=== PATIENT | male | born 1955 | race Caucasian/White ===

== ENCOUNTER 2022-10-15 05:35 | Observation (INO) | payer MEDICARE ==
[2022-10-08 12:57] VITALS: BMI 34.0
[~2022-10-15 05:35] MED LIST: ACETAMINOPHEN TAB 500 MG TAB PO PRN; GABAPENTIN 300 MG CAP PO PRN; MELOXICAM 7.5 MG TAB PO PRN; TRANEXAMIC ACID IN NACL,ISO-OS 1,000 MG in SALINE 1 100ML.BAG IVPB PRN
[2022-10-15] MEDS ORDERED: DEXAMETHASONE SOD PHOSPHATE 4 MG/ML 1 ML VIAL IV ONE (05:46)
[2022-10-15] MEDS ORDERED: HYDROmorphone 0.5 MG/0.5 ML SYRINGE IVP PRN ×4 (05:46→07:12)
[2022-10-15] MEDS ORDERED: ONDANSETRON 4 MG/2 ML VIAL IVP ONE (05:46)
[2022-10-15] MEDS ORDERED: LIDOCAINE 1% (10MG/ML) FOR IV START INTRADERMA PRN (05:46)
[2022-10-15] MEDS: LACTATED RINGERS 1,000 ML IV SCH (05:55)
[2022-10-15] MEDS ORDERED: fentaNYL (PF) 50 MCG/1 ML VIAL IVP ONE (06:47)
[2022-10-15] MEDS ORDERED: MIDAZOLAM 2 MG/2 ML VIAL IVP ONE (06:47)
[2022-10-15] MEDS ORDERED: SENNOSIDES-DOCUSATE SODIUM 1 EACH TAB PO PRN (07:12)
[2022-10-15] MEDS ORDERED: ONDANSETRON 4 MG/2 ML VIAL IVP PRN (07:12)
[2022-10-15] MEDS ORDERED: HYDROcodone/APAP 7.5-325MG 1 EACH TAB PO PRN ×2 (07:14)
[2022-10-15] MEDS ORDERED: TRANEXAMIC ACID IN NACL,ISO-OS 1,000 MG/100 ML BAG ONE (08:13)
[2022-10-15] MEDS ORDERED: PHENYLEPHRINE-0.9% NACL SYG 1,000 MCG/10 ML SYRINGE ONE (08:13)
[2022-10-15] MEDS ORDERED: DEXAMETHASONE SOD PHOSPHATE 4 MG/ML 1 ML VIAL ONE (08:13)
[2022-10-15] MEDS ORDERED: ePHEDrine 50 MG/ML 1 ML VIAL ONE (08:13)
[2022-10-15] MEDS ORDERED: GLYCOPYRROLATE 0.2 MG/ML 2 ML VIAL ONE (08:13)
[2022-10-15] MEDS ORDERED: LIDOCAINE 2% INJ 20 MG/ML (2 ML VIAL) ONE (08:13)
[2022-10-15] MEDS ORDERED: fentaNYL (PF) 50 MCG/ML 2 ML AMP ONE (08:13)
[2022-10-15] MEDS ORDERED: ROPIVACAINE 5 MG/ML 30 ML VIAL ONE (08:13)
[2022-10-15] MEDS ORDERED: MIDAZOLAM 2 MG/2 ML VIAL ONE (08:13)
[2022-10-15] MEDS ORDERED: SUCCINYLCHOLINE CHLORIDE 200 MG/10 ML VIAL IV ONE (08:13)
--- NOTE | 2022-10-15 08:20 | P.ANPRN ---
Procedure Note - Anesthesia - Nerve Block Performed Left Interscalene Single Time Out Performed: Yes Date of Procedure: 10/15/22 Procedure Start Time: 06:46 Procedure Stop Time: 06:55 Location of Patient: PreOp Indication: Acute Post-Operative Pain, Requested by Surgeon Specifically requested for management of pain by DrBruce: Remy Mendoza Sedation Type: Sedate with meaningful contact maintained Preparation: Sterile Prep Position: Supine Needle Types: Pajunk Needle Gauge: 21 Ultrasound used to visualize needle placement: Yes Ultrasound used to observe medication spread: Yes Injectate: 0.5% Ropivacaine (see comment for volume) (25 ml + 4 mg Dexamethasone) Blood Aspirated: No Pain Paresthesia on Injection Noted: No Resistance on Injection: Normal Image Stored and Saved: Yes Events: Uneventful and Well Tolerated
[2022-10-15] MEDS ORDERED: ceFAZolin 1,000 MG in SODIUM CHLORIDE 0.9% 1,000 ML IRRIGATION ONE (09:42)
[2022-10-15] MEDS ORDERED: LACTATED RINGERS 1,000 ML IV ONE (09:46)
--- NOTE | 2022-10-15 10:06 | P.OP ---
Date of Procedure: 10/15/22 Preoperative Diagnosis: Severe osteoarthritis left shoulder with chronic rotator cuff tear Postoperative Diagnosis: Severe osteoarthritis left shoulder with chronic rotator cuff tear Procedure(s) Performed: Reverse left total shoulder arthroplasty Implants: Biomet comprehensive shoulder system, mini humeral stem, 13 mm porous-coated. Biomet comprehensive reverse shoulder system, humeral bearing, 36 mm, standard Biomet comprehensive reverse shoulder system, mini humeral tray, 40 mm, +5, standard Biomet comprehensive reverse shoulder, Glenosphere mini baseplate, 25 mm Biomet comprehensive reverse shoulder, central screw, 6.5 mm x 25 mm Biomet comprehensive reverse shoulder, fixed locking screw, 4.75 x 20 mm, 20 mm, 25 mm, 25 mm. Biomet comprehensive reverse shoulder glenosphere, 36 mm, standard All components were press-fit. Articulation is metal on polyethylene.Articulation is metal on polyethylene. Anesthesia: GETA Surgeon: Remy Mendoza Paint Roller Covermaker #1: Carie Smith Estimated Blood Loss (ml): 150 Pathology: other (Humeral head) Condition: stable Disposition: PACU Indications for Procedure: This is a patient that presented to my office with severe pain in the shoulder. X-rays demonstrated severe osteoarthritis of the glenohumeral joint of his shoulder. After failure of conservative treatment, we discussed the surgical and nonsurgical treatment options at length. The patient wishes to proceed with a reverse total shoulder arthroplasty. Patient is aware of the complications of the procedure which include but are not limited to infection, hardware failure, persistent pain, dislocation, and nerve injury. Informed consent was obtained. Operative Findings: The operative findings are consistent with severe osteoarthritis of left shoulder with a chronic rotator cuff tear Description of Procedure: The patient was seen in the preoperative area, consent was reviewed, and operative site was marked with a skin marker. Patient was then brought to the operating room and given preoperative antibiotics intravenously. Patient was also given 1 g of Tranexamic acid intravenously. A general anesthetic was administered by the anesthesia department. A Yu catheter was placed by the nursing staff. The patient was then placed in a beachchair position with the bony prominences well-padded and the head secured. The shoulder was then prepped and draped in the usual sterile fashion. A universal timeout was then performed, which confirmed the patient's name, surgical site, ALLERGIES, and consent. A standard deltopectoral approach was performed. The skin and subcutaneous tissue was sharply dissected down to the deltoid fascia. The cephalic vein was then identified and retracted medially. The deltopectoral interval was then utilized to expose the subscapularis tendon. A retractor was then placed under the coracobrachialis tendon retracted medially, and the deltoid. The axillary nerve is palpated and protected throughout the procedure. The subscapularis tendon was then released and retracted medially. The humeral head was then exposed easily. The rotator cuff tendon was found to be completely torn and retracted. After the humeral head was exposed, osteophytes were removed with a Ronguer. Next the humeral stem was prepared. A starter reamer was then placed through the humeral head along the axis of the humeral shaft just lateral to the articular surface and just medial to the rotator cuff attachment. Sequential reaming was performed to the appropriate size reamer was inserted to the #between the 3 and 4 on the reamer. Next the intramedullary resection guide was placed on the reamer shaft. It was placed to the appropriate resection depth and angle of 30 of retroversion. Resection guide block was then secured with Steinmann pins. The proximal humerus was then resected. The block was then removed and the humerus was then broached sequentially to the same size as the reamer. After the broaches fully seated, the broach handle was removed and a broach cover was placed protect the humerus while the glenoid was prepared. Next attention was directed to the glenoid. The appropriate retractors were placed around the glenoid and any remaining soft tissues was removed from around the glenoid. After the glenoid was adequately exposed, the threaded glenoid guide was placed onto the glenoid and a 3.2 mm Steinmann pin was inserted in the glenoid at the desired angle and position, ensuring the pin engaged medial cortical wall. Next, the cannulated baseplate reamer was placed over the top of the Steinmann pin. The glenoid was then reamed to the appropriate depth. The glenoid reamer was then removed, leaving the Steinmann pin. The glenoid Chad plate implant was placed on the end of the cannulated baseplate impactor. The baseplate was then impacted fully into the glenoid. Next the 6.5 mm central screw was then placed which afforded excellent fixation. The 4 peripheral locking screws were then drilled measured and placed. Next the appropriate glenosphere was opened and impacted into the glenoid baseplate. Attention was then redirected to the humerus. Next a trial humeral tray was placed in the shoulder was reduced. Shoulder was taken through a full range of motion and found to be stable. The shoulder was then gently dislocated, and the trial humerus and humeral tray were removed. The final humeral stem was impacted in the final humeral tray was impacted as well. Shoulder was then relocated. Again the shoulder was taken through a range of motion and found to have no instability. Shoulder was then irrigated with pulsatile lavage. The shoulder was then irrigated with Irrisept solution. A second dose of 1 g of Tranexamic acid was given. The subscapularis was then repaired with #1 Vicryl. The deltopectoral interval was then closed with #1 Vicryl as well. The subcutaneous tissues were closed with 3-0 Vicryl and then 3-0 Strata-fix. Exofin glue was placed on the skin. A sterile dressing was then applied, the patient was transported to the recovery room in an arm sling in stable condition. The assistant professor of radiology ALANA Quezada was required due the complexity of surgery and the need for a skilled surgical lead.
--- NOTE | 2022-10-15 11:06 | XR ---
EXAMINATION TYPE: XR shoulder limited LT DATE OF EXAM: 10/15/2022 11:02 AM INDICATION: Patient age:Male; 67 years old; Reason for study: post op; COMPARISON: None TECHNIQUE: The left shoulder was examined in frontal projection FINDINGS: Reverse left shoulder arthroplasty. Hardware appears in appropriate position. No evidence for peripro sthetic loosening or evidence for fracture. The remaining portions of the visualized chest are unrema rkable. IMPRESSION: 1. No acute osseous pathology. 2. Left reverse total shoulder arthroplasty with no evidence for immediate post operative complicati on.
[2022-10-15] MEDS: SODIUM CHLORIDE 0.9% 1,000 ML IV SCH ×2 (16:05→21:45)
[2022-10-16] MEDS: LACTATED RINGERS 1,000 ML IV SCH (06:24)
[2022-10-16] MEDS: SODIUM CHLORIDE 0.9% 1,000 ML IV SCH (07:53)
--- NOTE | 2022-10-16 08:33 | P.DS ---
Providers Expected date of discharge: 10/16/22 Attending physician: Remy Mendoza Consults: 10/15/22 13:49 Consult Physician Routine Consulting Provider: Shoaib Castellon Consult Reason/Comments: Medical Management Do you want consulting provider notified?: Yes Primary care physician: Alberto Toro - Discharge Diagnosis(es) (1) S/p reverse total shoulder arthroplasty Current Visit: Yes Status: Acute (2) Osteoarthritis of left shoulder Current Visit: Yes Status: Acute Hospital Course: This is a 67-year-old male with known history of degenerative arthritis of the left shoulder and chronic rotator cuff tear. The patient presented for evaluation as an outpatient. After discussion and consideration patient elects to proceed with reverse total shoulder arthroplasty. The patient is seen preoperatively by Dr. Mendoza and medically cleared for surgery by their primary care physician. Patient is admitted to [facility] on 10/15/2022 for reverse total shoulder arthroplasty. The procedure is performed without complication or sequelae. The patient is doing well postoperatively. Labs and vital signs are stable on day of discharge. On day of discharge the patient's shoulder incision is healing well. There is minimal erythema. There is no drainage noted at this time. There is minimal soft tissue swelling to the shoulder. Patient has full hand and wrist motion without difficulty or pain. Neurovascular status to the left upper extremity is intact. Patient is discharged home in good condition. Please see med rec for accurate list of home medications. Plan - Discharge Summary Discharge Rx Participant: Yes New Discharge Prescriptions: New HYDROcodone/APAP 7.5-325MG [[place] 7.5-325] 1 - 2 tab PO Q6H PRN #32 tab PRN Reason: Pain Sennosides [Senokot] 2 tab PO DAILY PRN #60 tablet PRN Reason: Constipation No Action Apixaban [Eliquis] 5 mg PO BID Relacore 1 tab PO DAILY Flecainide Acetate [Tambocor] 100 mg PO BID Benazepril/Hydrochlorothiazide [Benazepril-Hctz 20-12.5 mg Tab] 1 each PO HS Metoprolol 25 mg PO BID Discharge Medication List Apixaban [Eliquis] 5 mg PO BID 10/08/22 [History] Benazepril/Hydrochlorothiazide [Benazepril-Hctz 20-12.5 mg Tab] 1 each PO HS 10/08/22 [History] Flecainide Acetate [Tambocor] 100 mg PO BID 10/08/22 [History] Metoprolol 25 mg PO BID 10/08/22 [History] Relacore 1 tab PO DAILY 10/08/22 [History] HYDROcodone/APAP 7.5-325MG [[place] 7.5-325] 1 - 2 tab PO Q6H PRN #32 tab 10/15/22 [Rx] Sennosides [Senokot] 2 tab PO DAILY PRN #60 tablet 10/15/22 [Rx] Follow up Appointment(s)/Referral(s): Remy Mendoza DO [Doctor of Osteopathic Medicine] - 2 Weeks Activity/Diet/Wound Care/Special Instructions: Maintain sling as needed for comfort. Dressing may be removed by home care nurse or by patient in 7 days. Then change dressing twice daily until follow up. May shower with initial dressing intact and after removal. If dressing become saturated, please remove. May start gentle range of motion of the shoulder as tolerated. Please resume Eliquis. Please follow-up with [facility] and call with any questions or concerns, . Discharge Disposition: HOME WITH HOME HEALTH SERVICES
[2022-10-16] MEDS ORDERED: APIXABAN 5 MG TAB PO SCH (09:00)
[2022-10-16 09:27] VITALS: BP 135/73; PULSE 84; RESP 21; TEMP 97.8
[2022-10-16] MEDS ORDERED: [UNRECOGNIZED DRUG - OTHER] PO SCH (10:15)
[2022-10-16] MEDS ORDERED: FLECAINIDE 50 MG TAB PO SCH (11:00)
[2022-10-16] MEDS ORDERED: METOPROLOL TARTRATE 25 MG TAB PO SCH (11:00)
--- NOTE | 2022-10-16 17:36 | P.CONS ---
History of Present Illness - Reason for Consult Consult date: 10/16/22 Medical management Requesting physician: Remy Mendoza - Chief Complaint Left shoulder surgery - History of Present Illness This is a pleasant 67-year-old patient who follows with Dr. Toro. Chronic stable medical conditions include hypertension, previous GA, osteoporosis, obstructive sleep apnea doesn't use CPAP a few months hasn't felt the need, varicose veins, paroxysmal atrial fibrillation secondary to Covid. Patient has undergone left total shoulder arthroplasty. Pain is present. Left arm wrestling. Did tolerate a diet this morning. No nausea vomiting. No chest pain. Did ambulate. Review of systems: GEN.: None EYES: None HEENT: None NECK: None RESPIRATORY: None CARDIOVASCULAR: None GASTROINTESTINAL: None GENITOURINARY: None MUSCULOSKELETAL: Joint pains LYMPHATICS: None HEMATOLOGICAL: None PSYCHIATRY: None NEUROLOGICAL: None Past medical history to include: Hypertension, GA, osteoporosis, obstructive sleep apnea, varicose veins, gastric bypass, Social history: Lives his fiance Barbara. Smoked over 50 years ago. Alcohol occasionally. Physical examination: VITAL SIGNS: 97.8, 84, 21, 135/73, 96% room air GENERAL: BMI 34.9, sitting up a chair awake on a distress. EYES: Pupils equal. Conjunctiva normal. HEENT: External appearance of nose and ears normal, oral cavity grossly normal. NECK: JVD not raised; masses not palpable. HEART: First and second heart sounds are normal; no edema. LUNGS: Respiratory rate normal; clear to auscultation. ABDOMEN: Soft, nontender, liver spleen not palpable, no masses palpable. PSYCH: Alert and oriented x3; mood and affect normal. MUSCULOSKELETAL:No Clubbing/cyanosis;muscles-grossly intact. OA. Left arm in a sling. Good finger movement fingers on left NEUROLOGICAL: Cranial nerves grossly intact; no facial asymmetry, power and sensation grossly intact. LYMPHATICS: No lymph nodes palpable in the axilla and neck INVESTIGATIONS, reviewed in the clinical context: 10/17/2022: White count 6.0 hemoglobin 13.8 platelets 210 potassium 4.7 creatinine 1.3 Assessment and plan: -Left shoulder total diverse arthroplasty for severe osteoarthritis with chronic rotator cuff tear Pain management. Left arm in a sling. -Paroxysmal atrial fibrillation Eliquis. Flecainide. Metoprolol 25 mg twice a day -Essential hypertension Benazapril hydrochlorothiazide 20/12.5 one tablet daily at bedtime -Obesity BMI 34.9 Weight loss measures Care was discussed with the patient. Questions answered. Follow-up with Dr. Toro upon discharge. Thank you Dr. Mendoza Past Medical History Past Medical History: Hypertension, Myocardial Infarction (GA), Musculoskeletal Disorder, Osteoarthritis (OA), Sleep Apnea/CPAP/BIPAP Additional Past Medical History / Comment(s): Varicose veins. "Hx Covid and it made my heart go out of rhythm, not sure if it was A-Fib." Carpal Tunnel Syndrome. No CPAP use since Jun 2022. Last Myocardial Infarction Date:: 2010 History of Any Multi-Drug Resistant Organisms: None Reported Past Surgical History: Bariatric Surgery, Joint Replacement, Orthopedic Surgery Additional Past Surgical History / Comment(s): Bilateral knee replacements, right shoulder replacement, right hand surgery with steel plate placed, neck surgery, gastric bypass, couple of fatty tumors removed, foot surgery for plantar fasciitis, "procedure to fix abnormal heart rhythm". Past Anesthesia/Blood Transfusion Reactions: No Reported Reaction Past Psychological History: No Psychological Hx Reported Smoking Status: Former smoker Past Alcohol Use History: Occasional Additional Past Alcohol Use History / Comment(s): Quit smoking in the early s. Additional Drug Use History / Comment(s): "Gummy for pain once in a while". Aware no use 24 hrs prior to procedure. - Past Family History Mother Family Medical History: No Reported History Medications and Allergies Home Medications Medication Instructions Recorded Confirmed Type Apixaban [Eliquis] 5 mg PO BID 10/08/22 10/15/22 History Benazepril/Hydrochlorothiazide 1 each PO HS 10/08/22 10/15/22 History [Benazepril-Hctz 20-12.5 mg Tab] Flecainide Acetate [Tambocor] 100 mg PO BID 10/08/22 10/15/22 History Metoprolol 25 mg PO BID 10/08/22 10/15/22 History Relacore 1 tab PO DAILY 10/08/22 10/08/22 History HYDROcodone/APAP 7.5-325MG [[place] 1 - 2 tab PO Q6H PRN #32 tab 10/15/22 Rx 7.5-325] Sennosides [Senokot] 2 tab PO DAILY PRN #60 tablet 10/15/22 Rx Allergies Allergy/AdvReac Type Severity Reaction Status Date / Time latex Allergy Rash/Hives Verified 10/15/22 06:01 Physical Exam Vitals: Vital Signs Temp Pulse Resp BP Pulse Ox 10/16/22 07:34 97.8 F 84 21 135/73 96 10/16/22 02:00 98.1 F 78 16 122/72 94 L 10/15/22 19:25 97.9 F 85 16 132/80 97 10/15/22 13:31 97.8 F 82 20 94/55 94 L 10/15/22 12:30 78 110/72 88 L 10/15/22 12:15 71 103/67 89 L 10/15/22 12:00 97.5 F L 77 19 102/66 94 L 10/15/22 11:45 61 16 101/62 94 L 10/15/22 11:30 65 16 102/62 94 L 10/15/22 11:15 64 16 103/61 94 L 10/15/22 11:00 73 16 103/60 94 L 10/15/22 10:45 68 16 106/62 94 L 10/15/22 10:39 79 16 97 10/15/22 10:30 81 16 103/64 96 10/15/22 10:15 80 16 116/65 97 Intake and Output 10/15/22 10/16/22 10/16/22 22:59 06:59 14:59 Intake Total 180 180 Balance 180 180 Intake: Oral 180 180 Other: Voiding Method Toilet Urinal # Voids 1 3
[2022-10-16] MEDS ORDERED: hydroCHLOROthiazide 12.5 MG CAP PO SCH (21:00)
[2022-10-16] MEDS ORDERED: lisinopriL 20 MG TAB PO SCH (21:00)
== END 2022-10-16 13:27 | disposition home health service (06) ==
LOC: OR 05:35 → 4SSUR 10:00 → OR 10-16 07:41 → 4SSUR 10-16 13:27
PROVIDERS: ADMIT Orthopaedic Surgery; ATTEND Orthopaedic Surgery
DX: M75.122 Complete rotator cuff tear or rupture of left shoulder, not specified as traumatic (principal); M19.012 Primary osteoarthritis, left shoulder; M25.712 Osteophyte, left shoulder; G89.18 Other acute postprocedural pain; I10 Essential (primary) hypertension; Z82.49 Family history of ischemic heart disease and other diseases of the circulatory system; Z83.3 Family history of diabetes mellitus; Z86.59 Personal history of other mental and behavioral disorders; Z79.01 Long term (current) use of anticoagulants; Z79.1 Long term (current) use of non-steroidal anti-inflammatories (NSAID); Z79.899 Other long term (current) drug therapy; Z79.891 Long term (current) use of opiate analgesic; Z86.69 Personal history of other diseases of the nervous system and sense organs
CPT/HCPCS: 23472; 64415; 76942; 88300; 73020; G0378; C1776; J2250; J0330; J1100; J0690 ×2; J2405; J3010 ×2; J2795; J2370; J2001

== ENCOUNTER → 2023-06-10 | Outpatient (CLI) | payer MEDICARE ==
[2023-06-10 21:25] LABS: Appearance,Urine Clear (Clear); Bilirubin,Urine Negative (Negative); Blood,Urine Negative (Negative); Color,Urine Yellow (Yellow); Ketones,Urine Negative (Negative); Nitrite,Urine Negative (Negative); Specific Gravity,Urine 1.015 (1.001-1.030)
[2023-06-10 21:47] LABS: HCT 45.2 % (39.6-50.0); HGB 13.9 d/dL (13.0-17.0); MCH 28.8 pg (27.0-32.0); MCHC 30.8 d/dL (32.0-37.0); MCV 93.8 FL (80.0-97.0); Mean Platelet Volume 11.2 FL (9.5-12.2); NRBC Per 100 WBC 0 X 10*3/uL (0.00-0.01); Platelet Count 208 X 10*3/uL (140-440); RBC 4.82 X 10*6/uL (4.40-5.60); RDW 14.5 % (11.5-14.5); WBC 5.98 X 10*3/uL (4.50-10.00)
[2023-06-10 22:25] LABS: ALT 11 U/L (10-49); AST 24 U/L (14-35); Albumin 4.2 d/dL (3.8-4.9); Albumin/Globulin Ratio 1.75 Ratio (1.60-3.17); Alkaline Phosphatase 86 U/L (41-126); BUN/Creat Ratio 16.75 Ratio (12.00-20.00); Blood Urea Nitrogen 20.1 mg/dL (9.0-27.0); Calcium 9.6 mg/dL (8.7-10.3); Carbon Dioxide 27.1 mmol/L (21.6-31.8); Chloride 98 mmol/L (96-109); Globulin 2.4 d/dL (1.6-3.3); Glucose 83 mg/dL (70-110); Potassium 4.4 mmol/L (3.5-5.5); Sodium 138 mmol/L (135-145); Total Bilirubin 1.5 mg/dL (0.3-1.2); Total Protein 6.6 d/dL (6.2-8.2)
== END | disposition home or self-care (01) ==
LOC: LABPAT 13:00
PROVIDERS: ATTEND Orthopaedic Surgery
DX: Z01.812 Encounter for preprocedural laboratory examination (principal); M16.12 Unilateral primary osteoarthritis, left hip
CPT/HCPCS: 80053; 81003; 85027; 86850; 86900; 86901; 87070

== ENCOUNTER → 2023-06-12 | Outpatient (CLI) | payer MEDICARE ==
[2023-06-12 13:30] LABS: Partial Thromboplastin Time 25.9 sec (22.0-30.0); Prothrombin Time 10.7 sec (10.0-12.5)
== END | disposition home or self-care (01) ==
LOC: LABPAT 12:27
PROVIDERS: ATTEND Orthopaedic Surgery
DX: Z01.812 Encounter for preprocedural laboratory examination (principal); M16.12 Unilateral primary osteoarthritis, left hip
CPT/HCPCS: 85610; 85730

== ENCOUNTER 2023-06-18 07:30 | Day surgery (SDC) | payer MEDICARE ==
[2023-06-13 09:21] VITALS: BMI 35.4
[~2023-06-18 07:30] MED LIST changes: +DEXAMETHASONE SOD PHOSPHATE 4 MG/ML 1 ML VIAL IV ONE; +HYDROmorphone 0.5 MG/0.5 ML SYRINGE IVP PRN; +LIDOCAINE 1% (10MG/ML) FOR IV START INTRADERMA PRN; +MIDAZOLAM 2 MG/2 ML VIAL IV PRN; +ONDANSETRON 4 MG/2 ML VIAL IVP ONE; +TRANEXAMIC 1,000 MG/100ML-NACL 1,000 MG in SALINE 1 100ML.BAG IVPB PRN; -TRANEXAMIC ACID IN NACL,ISO-OS 1,000 MG in SALINE 1 100ML.BAG IVPB PRN
[2023-06-18] MEDS ORDERED: LACTATED RINGERS 1,000 ML IV ONE ×2 (08:01→11:19)
[2023-06-18] MEDS ORDERED: fentaNYL (PF) 50 MCG/ML 2 ML AMP IVP ONE (08:57)
[2023-06-18] MEDS ORDERED: NALOXONE 0.4 MG/ML 1 ML VIAL IV PRN (09:03)
[2023-06-18] MEDS ORDERED: MAGNESIUM HYDROXIDE 2,400 MG/30 ML CUP PO PRN (09:03)
[2023-06-18] MEDS ORDERED: ONDANSETRON 4 MG/2 ML VIAL IVP PRN (09:03)
[2023-06-18] MEDS ORDERED: HYDROmorphone 0.5 MG/0.5 ML SYRINGE IVP PRN ×2 (09:03)
[2023-06-18] MEDS ORDERED: HYDROcodone/APAP 7.5-325MG 1 EACH TAB PO PRN (09:05)
[2023-06-18] MEDS ORDERED: DEXAMETHASONE SOD PHOSPHATE 4 MG/ML 1 ML VIAL ONE (09:19)
[2023-06-18] MEDS ORDERED: SODIUM CHLORIDE 0.9% (PF) 10 ML VIAL ONE (09:19)
[2023-06-18] MEDS ORDERED: MIDAZOLAM 2 MG/2 ML VIAL ONE (09:19)
[2023-06-18] MEDS ORDERED: ROPIVACAINE 5 MG/ML 30 ML VIAL ONE (09:19)
[2023-06-18] MEDS ORDERED: PROPOFOL 10 MG/ML 20 ML VIAL IV ONE (09:19)
[2023-06-18] MEDS ORDERED: fentaNYL (PF) 50 MCG/ML 2 ML AMP ONE (09:19)
[2023-06-18] MEDS ORDERED: ePHEDrine 50 MG/ML 1 ML VIAL ONE (09:19)
[2023-06-18] MEDS ORDERED: TRANEXAMIC 1,000 MG/100ML-NACL PREMIX BAG ONE (09:19)
--- NOTE | 2023-06-18 09:21 | P.ANPRN ---
Procedure Note - Anesthesia - Nerve Block Performed Left Mina Single Time Out Performed: Yes Date of Procedure: 06/18/23 Procedure Start Time: 08:56 Procedure Stop Time: 09:02 Location of Patient: PreOp Indication: Acute Post-Operative Pain, Requested by Surgeon Sedation Type: Sedate with meaningful contact maintained Preparation: Sterile Prep Position: Supine Needle Types: Pajunk Needle Gauge: 21 Ultrasound used to visualize needle placement: Yes Ultrasound used to observe medication spread: Yes Injectate: 0.5% Ropivacaine (see comment for volume) (15 ml + 10 ml NS + 4 mg Dexamethasone) Blood Aspirated: No Pain Paresthesia on Injection Noted: No Resistance on Injection: Normal Image Stored and Saved: Yes Events: Uneventful and Well Tolerated
[2023-06-18] MEDS ORDERED: ROPIVACAINE 5 MG/ML 30 ML VIAL MISCELLANE ONE ×2 (09:22→10:29)
[2023-06-18] MEDS: ceFAZolin 1,000 MG in SODIUM CHLORIDE 0.9% 1,000 ML IRRIGATION ONE ×2 (09:23→14:51)
--- NOTE | 2023-06-18 10:38 | P.OP ---
Date of Procedure: 06/18/23 Preoperative Diagnosis: Severe osteoarthritis left hip Postoperative Diagnosis: Severe osteoarthritis left hip Procedure(s) Performed: Left total hip arthroplasty with a direct anterior approach Implants: [employer] Polarstem standard size 3 with a collar [employer] R3, 3 hole hemispherical acetabular shell, 54 mm [employer] Reflection 6.5 mm cancellus screw, 20 mm 2 [employer] R3, XLPE 20 acetabular liner [employer] Oxinium femoral head 36 m, -3 All components were press-fit. The articulation is Oxinium on polyethylene. Anesthesia: spinal Surgeon: Remy Mendoza Forming Fixer #1: Carie Smith Estimated Blood Loss (ml): 350 Pathology: none sent Condition: stable Disposition: PACU Indications for Procedure: After failure of conservative treatment we discussed the surgical and nonsurgic al treatment options at length. Patient wishes to proceed with a total hip arthroplasty with a direct anterior approach. Complications specific to this procedure were discussed at length, including but not limited to infection, leg length discrepancy, dislocation, nerve injury, and fracture. Covid-19 was also discussed at length with the patient, and they are aware of the current policies and procedures. The patient was given the option of delaying surgery, but they elect to proceed knowing these risks. Patient is aware of all these complications and informed consent was obtained Operative Findings: The operative findings are consistent with severe osteoarthritis of the left hip Description of Procedure: The patient was seen and evaluated in the preoperative area and the consent was reviewed. The operative site was marked with a skin marker. The patient verified the procedure and operative site. A SEAN block was placed by anesthesia in the preoperative area. The patient was then brought to the operating room and given preoperative antibiotics intravenously. 1 g of Tranexamic acid was also given intravenously. A spinal anesthetic was administered by the anesthesia department. The patient was then placed on the [place] table with the bony prominences well-padded. The hip area was then prepped with a ChloraPrep solution and draped in the usual sterile fashion. A universal timeout was then performed, which confirmed the patient's name, surgical site, ALLERGIES, and procedure being performed on the consent. Next the incision site was located at 1 cm distal and 4 cm lateral to the anterior superior iliac spine. The skin and subcutaneous tissues were sharply incised. Incision was carefully dissected down to the fascia overlying the tensor fascia chaim muscle. This fascia was then incised in line with the muscle fibers. Care was taken to stay laterally in order to avoid injuring the lateral femoral cut aneous nerve. Next, using blunt finger dissection, the tensor fascia chaim muscle was dissected off its investing fascia. The muscle was then carefully retracted laterally with a cobra retractor over the lateral neck of the femur. Next, the circumflex vessels were identified and cauterized using the Aquamantis device. The anterior hip capsule was then exposed. The capsule was then opened and an inverted T fashion. The retractors were then placed intracapsularly. The retractors were maintained intracapsular throughout the procedure. The proximal femur was then visualized. Fluoroscopic x-rays were then taken in order to evaluate the preoperative leg lengths. A small amount of traction was placed on the leg. The femoral neck was then osteotomized at the appropriate level above the lesser trochanter. A small wedge of bone was then removed from the remaining femoral head. Next, using a corkscrew the femoral head was removed from the acetabulum. On gross visual inspection, the femoral head had complete loss of articular cartilage and multiple periarticular osteophytes. The femoral head was then measured. Attention was then turned to the acetabulum. The acetabulum was exposed and any remaining labrum was excised. Sequential reaming of the acetabulum was performed using fluoroscopic guidance until there was a good bed of bleeding cancellus bone. When the appropriate size was reached, a trial was then placed. The position and fit of the trial was checked with fluoroscopy. The trial was then removed. Then, using fluoroscopic guidance, the final implant was impacted at 20 of anteversion and 40 of abduction, and fully seated in the acetabulum. 2 screws were then placed in the acetabulum. Again fluoroscopy was used to check position of the screws. Next, the liner was then impacted, with a 20 elevated liner located in the anterior superior quadrant. Component locking was confirmed. Attention was then directed to the femur. With the aid of the [place] table, the femur was externally rotated to approximately 130, extended, and adducted under the opposite leg. A side hook was then placed under the proximal femur, and the side hook elevator was used to elevate the proximal femur while releasing the capsule. Retractors were then placed. A capsular release was performed, as well as a release of the conjoined tendon, which afforded excellent visual ization of the proximal femur. Next, a box osteotome was used to lateralize the proximal femur. A dough molder hand was then used to locate the femoral canal. Sequential broaching was then performed with appropriate size which afforded excellent fixation in the proximal femur. A trial was then placed with appropriate head and neck, and the hip was gently reduced with the aid of the [place] table. Fluoroscopy was then used to check position of the components, as well as to evaluate the leg lengths and offset. The leg lengths and offset were measured as closely as possible to ensure stability of the hip. The hip was then gently dislocated and the trials were then removed. Final implants were then impacted and the hip was again reduced. Final fluoroscopic x-rays confirmed that the components were in anatomic position. The leg lengths and offset were measured and were found to coincide with the trial measurements. The hip was also taken through range of motion, and found to be stable. The hip was then copiously irrigated with antibiotic solution with pulsatile lavage. The hip was then irrigated with Irrisept solution. The soft tissues were then injected with a ropivacaine solution. A second dose of 1 g of Tranexamic acid was also given intravenously. The fascia was then closed with 2-0 strata fix suture. The subcutaneous tissue was closed with 3-0 Vicryl. The subcuticular tissue was closed with 3-0 strata fix suture. The skin was then closed with Exofin skin glue. After the glue and dried, and Optifoam silver impregnated dressing was applied. The patient was then transferred to the recovery room in stable condition. The museum assistant ALANA Quezada was required due to the complexity of surgery, and the need for skilled surgical consultant for positioning, draping, exposure, retraction, and closure of the wound.
--- NOTE | 2023-06-18 10:52 | XR ---
EXAMINATION TYPE: XR Hip Limited LT DATE OF EXAM: 06/18/2023 CLINICAL HISTORY: Postoperative evaluation TECHNIQUE: Single portable view of the left hip was submitted. FINDINGS: Noted are changes of total hip arthroplasty with femoral and acetabular components appearin g well seated. Alignment is anatomic. Postsurgical soft tissue changes are evident. IMPRESSION: Satisfactory postoperative alignment
--- NOTE | 2023-06-18 11:02 | FL ---
Fluoroscopy History: LEFT ANTERIOR HIP 41 SEC FLUORO, DAP 3.2848 Gycm2
[2023-06-18] MEDS: HYDROmorphone 0.5 MG/0.5 ML SYRINGE IVP PRN ×2 (14:41→17:58)
[2023-06-18] MEDS: LACTATED RINGERS 1,000 ML IV SCH ×2 (14:44→14:51)
[2023-06-18] MEDS: SODIUM CHLORIDE 0.9% 1,000 ML IV SCH (14:51)
[2023-06-18] MEDS: HYDROcodone/APAP 7.5-325MG 1 EACH TAB PO PRN (18:47)
[2023-06-18] MEDS: ASPIRIN 325 MG TAB PO SCH (20:23)
[2023-06-18] MEDS: METOPROLOL TARTRATE 25 MG TAB PO SCH (20:23)
[2023-06-18] MEDS: FLECAINIDE 50 MG TAB PO SCH (20:24)
[2023-06-18] MEDS ORDERED: SENNOSIDES-DOCUSATE SODIUM 1 EACH TAB PO SCH (21:00)
--- NOTE | 2023-06-18 21:49 | P.CONS ---
History of Present Illness - Reason for Consult Consult date: 06/18/23 Medical management Requesting physician: Remy Mendoza - Chief Complaint Left hip surgery - History of Present Illness This is a pleasant 68-year-old patient who follows with Dr. Toro. Chronic stable medical conditions include hypertension, previous HI, osteoporosis, obstructive sleep apnea doesn't use CPAP , varicose veins, paroxysmal atrial fibrillation secondary to Covid. Patient has undergone, left total hip arthroplasty. Pain control. Sitting up in a chair. No nausea vomiting. Did take some supper. No chest pain or shortness of breath. Review of systems: GEN.: None EYES: None HEENT: None NECK: None RESPIRATORY: None CARDIOVASCULAR: None GASTROINTESTINAL: None GENITOURINARY: None MUSCULOSKELETAL: Joint pains LYMPHATICS: None HEMATOLOGICAL: None PSYCHIATRY: None NEUROLOGICAL: None Past medical history to include: Hypertension, HI, osteoporosis, obstructive sleep apnea, varicose veins, gastric bypass, osteoarthritis Social history: Lives his fiance Barbara. Smoked over 50 years ago. Alcohol occasionally. Physical examination: VITAL SIGNS: 97.6, 18, 19, 139/81, 92% on room air GENERAL: BMI 35.8, sitting up in a chair awake comfortable EYES: Pupils equal. Conjunctiva normal. HEENT: External appearance of nose and ears normal, oral cavity grossly normal. NECK: JVD not raised; masses not palpable. HEART: First and second heart sounds are normal; no edema. LUNGS: Respiratory rate normal; clear to auscultation. ABDOMEN: Soft, nontender, liver spleen not palpable, no masses palpable. PSYCH: Alert and oriented x3; mood and affect normal. MUSCULOSKELETAL:No Clubbing/cyanosis;muscles-grossly intact. OA. Dressing over the left hip incision site NEUROLOGICAL: Cranial nerves grossly intact; no facial asymmetry, power and s ensation grossly intact. LYMPHATICS: No lymph nodes palpable in the axilla and neck INVESTIGATIONS, reviewed in the clinical context: 06/10/2023: White count 5.9 hemoglobin 13.9 platelets 208 sodium 138 potassium 4.4 creatinine 1.2 Assessment and plan: -Left hip hemiarthroplasty Aspirin for DVT prophylaxis. IV cefazolin for infection prophylaxis. -Persistent atrial fibrillation fibrillation, rate controlled Resume eliquis tonight Flecainide. Lopressor -Essential hypertension Benazapril hydrochlorothiazide 20/12.5 one tablet daily at bedtime -Obesity BMI 35.8 Weight loss measures -Primary osteoarthritis Pain control when necessary Discussed with patient. Home medications resumed. Resume eliquis in the morning. Thank you Dr. Mendoza Past Medical History Past Medical History: Atrial Fibrillation, Hypertension, Myocardial Infarction (HI), Musculoskeletal Disorder, Osteoarthritis (OA), Prostate Disorder, Sleep Apnea/CPAP/BIPAP Additional Past Medical History / Comment(s): Varicose veins, C-pap machine, states a-fib started when he had Covid., back pain, elevated psa., environmental allergies., states nausea in am-possible reaction to flecainide (per Cardiologists notes). Last Myocardial Infarction Date:: 2010 History of Any Multi-Drug Resistant Organisms: None Reported Past Surgical History: Bariatric Surgery, Joint Replacement, Orthopedic Surgery Additional Past Surgical History / Comment(s): Bilateral knee replacements, mohan shoulder replacements, right hand surgery with steel plate , neck surgery with hardware., gastric bypass, couple of fatty tumors removed, foot surgery for plantar fasciitis, cardioversion. 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) Past Drug Use History: Marijuana Additional Drug Use History / Comment(s): thc gummy at hs - Past Family History Mother Family Medical History: No Reported History Father Family Medical History: CVA/TIA Medications and Allergies Home Medications Medication Instructions Recorded Confirmed Type Benazepril/Hydrochlorothiazide 1 each PO HS 10/08/22 06/18/23 History [Benazepril-Hctz 20-12.5 mg Tab] Flecainide Acetate [Tambocor] 100 mg PO Q12HR 10/08/22 06/18/23 History Acetaminophen/Diphenhydramine 2 tab PO HS 06/13/23 06/18/23 History [Tylenol PM 500-25mg] Eliquis (Unknown Dose) 1 dose PO DAILY 06/13/23 06/18/23 History Fluticasone Nasal [place] [Flonase 1 spray EA NOSTRIL DAILY 06/13/23 06/18/23 History Nasal [place]] Gummy Thc 1 dose PO HS 06/13/23 History Metoprolol Tartrate [Lopressor] 25 mg PO BID 06/13/23 06/18/23 History Promethazine HCl 12.5 mg PO DAILY 06/13/23 06/18/23 History Tamsulosin HCl [Flomax] 0.4 mg PO DAILY 06/13/23 06/18/23 History Aspirin 325 mg PO BID #60 tab 06/18/23 Rx HYDROcodone/APAP 7.5-325MG [[place] 1 - 2 tab PO Q6H PRN #32 tab 06/18/23 Rx 7.5-325] Sennosides [Senokot] 2 tab PO DAILY PRN #60 tablet 06/18/23 Rx Allergies Allergy/AdvReac Type Severity Reaction Status Date / Time latex Allergy Rash/Hives Verified 06/18/23 08:11 Physical Exam Vitals: Vital Signs Temp Pulse Resp BP Pulse Ox 06/18/23 17:11 97.6 F 80 19 139/81 92 L 06/18/23 14:09 97.6 F 75 17 120/79 93 L 06/18/23 13:35 77 18 105/65 96 06/18/23 12:58 68 18 127/80 96 06/18/23 12:28 63 16 114/75 96 06/18/23 11:58 64 16 118/78 95 06/18/23 11:48 64 16 108/73 95 06/18/23 11:28 59 L 16 109/74 95 06/18/23 11:17 70 16 100/67 96 06/18/23 10:58 97 F L 72 16 85/55 95 06/18/23 09:15 70 106/64 97 06/18/23 08:13 98.2 F 69 18 144/92 96 Intake and Output 06/18/23 06/18/23 06/18/23 06:59 14:59 22:59 Intake Total 1051 200 Output Total 350 Balance 701 200 Intake: IV 1051 Oral 200 Output: Estimated Blood Loss 350 Other: # Voids 2 Weight 110 kg
[2023-06-19] MEDS: SODIUM CHLORIDE 0.9% 1,000 ML IV SCH (00:29)
[2023-06-19] MEDS: HYDROcodone/APAP 7.5-325MG 1 EACH TAB PO PRN ×3 (01:35→13:03)
[2023-06-19 02:31] VITALS: PULSE 75
[2023-06-19] MEDS: HYDROmorphone 0.5 MG/0.5 ML SYRINGE IVP PRN (03:19)
[2023-06-19 08:23] LABS: Basophils # (A) 0.01 X 10*3/uL (0.00-0.10); Basophils % (A) 0.1 %; Eosinophils # (A) 0 X 10*3/uL (0.04-0.35); Eosinophils % (A) 0 %; HCT 34.6 % (39.6-50.0); HGB 11.5 g/dL (13.0-17.0); Lymphocytes # (A) 0.67 X 10*3/uL (0.90-5.00); Lymphocytes % (A) 5.6 %; MCH 29.5 pg (27.0-32.0); MCHC 33.2 g/dL (32.0-37.0); MCV 88.7 FL (80.0-97.0); Mean Platelet Volume 9.2 FL (9.5-12.2); Monocytes # (A) 1.49 X 10*3/uL (0.20-1.00); Monocytes % (A) 12.5 %; NRBC Per 100 WBC 0 X 10*3/uL (0.00-0.01); Neutrophils # (A) 9.67 X 10*3/uL (1.80-7.70); Neutrophils % (A) 81.4 %; Platelet Count 194 X 10*3/uL (140-440); WBC 11.89 X 10*3/uL (4.50-10.00)
[2023-06-19 08:27] VITALS: BP 119/68; RESP 18; TEMP 97.6
[2023-06-19] MEDS: ASPIRIN 325 MG TAB PO SCH (08:49)
[2023-06-19] MEDS: FLECAINIDE 50 MG TAB PO SCH (08:50)
[2023-06-19] MEDS: METOPROLOL TARTRATE 25 MG TAB PO SCH (08:50)
[2023-06-19] MEDS ORDERED: APIXABAN 5 MG TAB PO SCH (09:00)
[2023-06-19] MEDS ORDERED: TAMSULOSIN 0.4 MG CAP.ER.24H PO SCH (09:00)
[2023-06-19] MEDS ORDERED: PROMETHAZINE 25 MG TAB PO SCH (09:00)
--- NOTE | 2023-06-19 10:00 | P.DS ---
Providers Expected date of discharge: 06/19/23 Attending physician: Remy Mendoza Consults: 06/18/23 09:03 Consult Physician Routine Consulting Provider: Shoaib Castellon Consult Reason/Comments: medical management Do you want consulting provider notified?: Yes Primary care physician: Alberto Toro - Discharge Diagnosis(es) (1) Osteoarthritis of left hip Current Visit: Yes Status: Acute (2) S/P total left hip arthroplasty Current Visit: Yes Status: Acute Hospital Course: This is a 68-year-old male with known history of degenerative arthritis of the left hip. The patient presented for evaluation as an outpatient. After discussion and consideration patient elects to proceed with total hip arthroplasty. The patient is seen preoperatively by Dr. Mendoza and medically cleared for surgery by their primary care physician. Patient is admitted to [facility] on 06/18/2023 for left total hip arthroplasty with direct anterior approach. The procedure is performed without complication or sequelae. The patient is doing well postoperatively. Labs and vital signs are stable on day of discharge. On day of discharge patient's hip incision is healing well. There is minimal erythema. There is no drainage noted at this time. There is minimal soft tissue swelling to the hip and thigh. Patient has full foot and ankle motion without difficulty or pain. Calf is soft and nontender to palpation. Neurovascular status to the left lower extremity is intact. Patient is discharged home in good condition. Please see [facility] rec for accurate list of home medications. Plan - Discharge Summary Discharge Rx Participant: Yes New Discharge Prescriptions: New Aspirin 325 mg PO BID #60 tab HYDROcodone/APAP 7.5-325MG [[place] 7.5-325] 1 - 2 tab PO Q6H PRN #32 tab PRN Reason: Pain Sennosides [Senokot] 2 tab PO DAILY PRN #60 tablet PRN Reason: Constipation No Action Metoprolol Tartrate [Lopressor] 25 mg PO BID Fluticasone Nasal [place] [Flonase Nasal [place]] 1 spray EA NOSTRIL DAILY Acetaminophen/Diphenhydramine [Tylenol PM 500-25mg] 2 tab PO HS Promethazine HCl 12.5 mg PO DAILY Eliquis (Unknown Dose) 1 dose PO DAILY Gummy Thc 1 dose PO HS Flecainide Acetate [Tambocor] 100 mg PO Q12HR Benazepril/Hydrochlorothiazide [Benazepril-Hctz 20-12.5 mg Tab] 1 each PO HS Tamsulosin HCl [Flomax] 0.4 mg PO DAILY Discharge Medication List Benazepril/Hydrochlorothiazide [Benazepril-Hctz 20-12.5 mg Tab] 1 each PO HS 10/08/22 [History] Flecainide Acetate [Tambocor] 100 mg PO Q12HR 10/08/22 [History] Acetaminophen/Diphenhydramine [Tylenol PM 500-25mg] 2 tab PO HS 06/13/23 [History] Eliquis (Unknown Dose) 1 dose PO DAILY 06/13/23 [History] Fluticasone Nasal [place] [Flonase Nasal [place]] 1 spray EA NOSTRIL DAILY 06/13/23 [History] Gummy Thc 1 dose PO HS 06/13/23 [History] Metoprolol Tartrate [Lopressor] 25 mg PO BID 06/13/23 [History] Promethazine HCl 12.5 mg PO DAILY 06/13/23 [History] Tamsulosin HCl [Flomax] 0.4 mg PO DAILY 06/13/23 [History] Aspirin 325 mg PO BID #60 tab 06/18/23 [Rx] HYDROcodone/APAP 7.5-325MG [[place] 7.5-325] 1 - 2 tab PO Q6H PRN #32 tab 06/18/23 [Rx] Sennosides [Senokot] 2 tab PO DAILY PRN #60 tablet 06/18/23 [Rx] Follow up Appointment(s)/Referral(s): [facility] - 1-2 Days ([facility] will call you to schedule you in home physical therapy visits. ) Remy Mendoza DO [Doctor of Osteopathic Medicine] - 2 Weeks Activity/Diet/Wound Care/Special Instructions: Weightbearing as tolerated with walker. Leave dressing intact. Dressing may be removed by home care nurse or by patient in 7 days. Then change dressing twice daily until follow up. May shower with initial dressing intact and after removal. If dressing become saturated, please remove. Please take aspirin 325mg twice daily for 30 days to prevent blood clots. Recommend use of compression stockings daily until follow up to help prevent swelling and blood clots. May remove at night before sleeping. Please follow-up with [facility] in 2 weeks and call with any questions or concerns, . Discharge Disposition: HOME WITH HOME HEALTH SERVICES
--- NOTE | 2023-06-19 17:24 | P.PN ---
Progress Note - Text Progress Note Date: 06/19/23 - Chief Complaint Left hip surgery - History of Present Illness This is a pleasant 68-year-old patient who follows with Dr. Toro. Chronic stable medical conditions include hypertension, previous SD, osteoporosis, obstructive sleep apnea doesn't use CPAP , varicose veins, paroxysmal atrial fibrillation secondary to Covid. Patient has undergone, left total hip arthroplasty. Pain control. Sitting up in a chair. No nausea vomiting. Did take some supper. No chest pain or shortness of breath. June 19: Doing much better. Pain control. Did tolerate diet. Did work with therapy. Discussed with patient in finance at the bedside. Eating fair. Past medical history to include: Hypertension, SD, osteoporosis, obstructive sleep apnea, varicose veins, gastric bypass, osteoarthritis Social history: Lives his fiance Barbara. Smoked over 50 years ago. Alcohol occasionally. Physical examination: VITAL SIGNS: 97.6, 75, 18, 119 with 68, 96% room air GENERAL: Up in a chair, comfortable EYES: Pupils equal. Conjunctiva normal. HEENT: External appearance of nose and ears normal, oral cavity grossly normal. NECK: JVD not raised; masses not palpable. HEART: First and second heart sounds are normal; no edema. LUNGS: Respiratory rate normal; clear to auscultation. ABDOMEN: Soft, nontender, liver spleen not palpable, no masses palpable. PSYCH: Alert and oriented x3; mood and affect normal. MUSCULOSKELETAL:No Clubbing/cyanosis;muscles-grossly intact. OA. Dressing over the left hip incision site INVESTIGATIONS, reviewed in the clinical context: June 19: Hemoglobin 11.5 06/10/2023: White count 5.9 hemoglobin 13.9 platelets 208 sodium 138 potassium 4.4 creatinine 1.2 Assessment and plan: -Left hip hemiarthroplasty Aspirin for DVT prophylaxis. IV cefazolin for infection prophylaxis. -Persistent atrial fibrillation fibrillation, rate controlled She takes a reduced dose of eliquis because of easy bleeding. 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 Lopressor -Essential hypertension Benazapril hydrochlorothiazide 20/12.5 one tablet daily at bedtime -Obesity BMI 35.8 Weight loss measures -Primary osteoarthritis Pain control when necessary Discussed with patient. Questions answered. Follow-up with his PCP. Thank you Dr. Mendoza
== END 2023-06-19 14:08 | disposition home health service (06) ==
LOC: OR 07:30 → 4SSUR 10:57 → OR 06-19 14:08
PROVIDERS: ATTEND Orthopaedic Surgery
DX: M16.12 Unilateral primary osteoarthritis, left hip (principal); I10 Essential (primary) hypertension; Z96.611 Presence of right artificial shoulder joint; Z96.653 Presence of artificial knee joint, bilateral
CPT/HCPCS: 27130; 97161; 97535; 97165; 64447; 85025; 73501; C1776; J2250; J1100; J0690 ×3; J2405; J3010; J2795; J1170 ×2

== ENCOUNTER → 2024-01-10 | Outpatient (CLI) | payer MEDICARE ==
--- NOTE | 2024-01-15 12:02 | CT ---
EXAMINATION TYPE: CT shoulder LT wo con DATE OF EXAM: 01/10/2024 COMPARISON: X-ray 10/16/2019 HISTORY: Pain LT shoulder, pain due to internal orthopedic prosthetic device. CT DLP: 788.80 mGycm Automated exposure control for dose reduction was used. FINDINGS: There is severe metal artifact patient's shoulder prostheses which limits assessment There are lucency surrounding the orthopedic screws extending into the glenoid and scapula along the peripheral margins. Suspect this may be post artifactual but should be correlated clinically to exclu de malfunctioning hardware given the marked limitation of this exam. The inferior orifice. A screw ma y be within minimally within the anterior cortical margin and should be correlated clinically. Cystic changes involving the scapula\glenoid most likely post arthritic. Chronic appearing arthropathy and heterotopic ossification along the AC joints. Cystic changes involv ing the acromion likely post arthritic or post surgical. There is evidence of sternoclavicular hypert rophic arthropathy. Postsurgical changes suggestive of ACDF partially included in the [id number]. Soft tissue windows are essentially nondiagnostic due to extreme artifact. If there is concern for fl uid collection correlated with ultrasound. Lung bases demonstrate subsegmental consolidation most typ ical of atelectasis. IMPRESSION: 1. Severely limited exam due to extreme metal artifact from the patient's shoulder replacement. The l owest orthopedic screw extending into the glenoid and scapula may just peripherally within the bony l andmark. There is concern for loosening or hardware malfunction consider correlation with triple phas e bone scan.
== END | disposition home or self-care (01) ==
LOC: RADCTMAIN 12:02
PROVIDERS: ATTEND Orthopaedic Surgery
DX: Z09 Encounter for follow-up examination after completed treatment for conditions other than malignant neoplasm (principal); T84.84XD Pain due to internal orthopedic prosthetic devices, implants and grafts, subsequent encounter; M25.512 Pain in left shoulder; Y79.2 Prosthetic and other implants, materials and accessory orthopedic devices associated with adverse incidents; Z96.612 Presence of left artificial shoulder joint